=== PATIENT | male | born 1975 | race Native Hawaiian/Other Pacific Islander ===

== ENCOUNTER 2017-10-30 22:45 | Emergency (ER) | payer MEDICAID ==
[2017-10-30 23:07] VITALS: O2SAT 100
[2017-10-30 23:16] LABS: BASO # 0.1 K/uL (0.0-0.2); EOS # 0.4 K/uL (0.0-0.7); EOS % 4.1 % (0.0-4.0); HEMOGLOBIN 11.1 g/dL (12.0-18.0); LYMPH # 1.2 K/uL (1.0-4.3); LYMPH % 11.4 % (20.0-40.0); MEAN CELL VOLUME 86.8 fL (80.0-94.0); MEAN CORPUSCULAR HEMOGLOBIN 29.6 pg (27.0-31.0); MEAN CORPUSCULAR HGB CONC 34.1 g/dL (33.0-37.0); MEAN PLATELET VOLUME 7.6 fL (7.2-11.7); MONO % 8.8 % (0.0-10.0); NEUT # 8.1 K/uL (1.8-7.0); NEUT % 74.7 % (50.0-75.0); RBC 3.74 Mil/uL (4.40-5.90); RED CELL DISTRIBUTION WIDTH 13.5 % (11.5-14.5); WHITE BLOOD COUNT 10.8 K/uL (4.8-10.8)
[2017-10-30] MEDS ORDERED: Sodium Chloride 0.9% 1,000 ML IV ONE (23:23)
[2017-10-30 23:26] LABS: ALB/GLOB RATIO 1.1 (1.0-2.1); ALBUMIN 3.6 g/dL (3.5-5.0); ALT/SGPT 27 U/L (21-72); AST/SGOT 17 U/L (17-59); BLOOD UREA NITROGEN 26 mg/dL (9-20); CALCIUM 9.1 mg/dl (8.6-10.4); GFR AFRICAN-AMERICAN > 60; GFR NON-AFRICAN AMERICAN > 60
--- NOTE | 2017-10-31 00:37 | C.PDOC ---
History Of Present Illness Patient brought by family for hypoglycemia. Patient has been diabetic for many years. 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 Denies any other physical complaints. 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 Time Seen by Provider: 10/30/17 23:17 Chief Complaint (Nursing): Altered Mental Status History Per: Patient History/Exam Limitations: None Onset/Duration Of Symptoms: Hrs Current Symptoms Are (Timing): Still Present Usual Baseline: Unknown Exacerbating Factor(s): Diabetic Use Of Anticoag/Antiplatelets: No Speech Is: Normal Recent travel outside of the [place]: No Associated Symptoms: denies: Fever, Chills, Headache, Vomiting, Diarrhea, Syncope, Weakness Past Medical History Reviewed: Historical Data, Nursing Documentation, Vital Signs Vital Signs: Last Vital Signs Temp Pulse 88 10/30/17 22:52 Resp 13 10/30/17 22:52 BP 105/70 10/30/17 22:52 Pulse Ox 100 10/31/17 00:38 - Medical History PMH: HTN Surgical History: No Surg Hx Family History: States: No Known Family Hx - Social History Hx Alcohol Use: Yes Hx Substance Use: No - Immunization History Hx Tetanus Toxoid Vaccination: No Hx Influenza Vaccination: No Hx Pneumococcal Vaccination: No Review Of Systems Constitutional: Negative for: Fever, Chills Cardiovascular: Negative for: Chest Pain Respiratory: Negative for: Cough, Shortness of Breath Gastrointestinal: Negative for: Nausea, Vomiting, Abdominal Pain, Diarrhea Skin: Negative for: Rash Neurological: Negative for: Weakness, Numbness, Change in Speech, Confusion, Dizziness Psych: Negative for: Suicidal ideation Physical Exam - Physical Exam Appears: Non-toxic, Other (Thin; chronically ill; ) Skin: Warm, Dry, Pale Head: Atraumatic, Normacephalic Eye(s): right: Normal Inspection, PERRL, EOMI, left: Other (Conjunctival suffusion; light sensitivity to eye. ) Oral Mucosa: Moist Neck: Supple Chest: Symmetrical, No Tenderness Cardiovascular: Rhythm Regular Respiratory: No Decreased Breath Sounds, No Rales, No Rhonchi, No Wheezing Gastrointestinal/Abdominal: Soft, No Tenderness, No Distention Extremity: Normal ROM, No Tenderness, No Pedal Edema, No Deformity Extremity: Bilateral: Normal Color And Temperature, Normal ROM Neurological/Psych: Oriented x3 (awake and alert), Normal Speech (speaking in full sentences), Normal Cognition, Other (no focal deficits) Gait: Steady ED Course And Treatment - Laboratory Results Result Diagrams: 10/30/17 23:11 10/30/17 23:11 O2 Sat by Pulse Oximetry: 100 (RA) Pulse Ox Interpretation: Normal Progress Note: fed dinner, feels much better, blood sugar improved and stable. 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 Patient's blood sugar was in the 60s. He was given juice but no food. - Patient refused EMS transport so her came with family. - At arrival patient's blood sugar was 84. Ordered blood work and urinalysis. Administered IV fluid. Disposition Doctor Will See Patient In The: Office Counseled Patient/Family Regarding: Studies Performed, Diagnosis - Disposition [facility] Disposition: HOME/ ROUTINE Disposition Time: 00:37 Condition: GOOD Additional Instructions: follow-up with [facility] to consider medication adjustment/changes for the diarrhea caused by Cellcept BRAT diet Continue to permit glucose to be a little elevated (150-200) by eating enough calories/carbohydrates Check finger stick again tonight Instructions: Diarrhea in Adolescents and Adults, Low Blood Sugar in People With Diabetes Forms: [facility] (Slovak) - Clinical Impression Clinical Impression: Hypoglycemia, Diarrhea - Scribe Statement The provider has reviewed the documentation as recorded by the Marlaibozzy Gardiner All medical record entries made by the Marlaibozzy were at my direction and personally dictated by me. I have reviewed the chart and agree that the record accurately reflects my personal performance of the history, physical exam, medical decision making, and the department course for this patient. I have also personally directed, reviewed, and agree with the discharge instructions and disposition.
[2017-10-31 01:20] VITALS: BP 97/65; PULSE 97; RESP 18; TEMP 98.7
== END 2017-10-31 01:20 | disposition home or self-care (01) ==
LOC: C.ER 22:45
DX: E11.649 Type 2 diabetes mellitus with hypoglycemia without coma (principal); R19.7 Diarrhea, unspecified
CPT/HCPCS: 80053; 82009; 82948; 85025; 96360; 99285; J7040

== ENCOUNTER 2018-09-19 15:57 | Emergency (ER) | payer MEDICAID, OTHER ==
[2018-09-19 16:06] VITALS: BP 116/74; PULSE 90; TEMP 97.8; O2SAT 95
[2018-09-19] MEDS ORDERED: Naproxen 550 mg Tab PO STA (16:57)
[2018-09-19] MEDS ORDERED: Naproxen 550 mg Tab PO ONE (17:07)
--- NOTE | 2018-09-19 18:00 | C.PDOC ---
History Of Present Illness 43 year old male presents to the emergency department with complaints of right shoulder pain which began 3 days ago but worsened today. Patient states that he does 200 pushups per day, and last week he felt pain and stopped for 3-4 days. Patient resumed the pushups, but this time was doing 100 and noticed the pain in his right shoulder once again. Patient reports taking OTC pain medications without relief. Patient is currently wearing a sling to immobilize the arm and rates his pain as 8/10. Patient denies paresthesia, weakness, stiffness, swelling, and bruising. Time Seen by Provider: 09/19/18 16:47 Chief Complaint (Nursing): Upper Extremity Problem/Injury History Per: Patient History/Exam Limitations: no limitations Onset/Duration Of Symptoms: Days (3) Current Symptoms Are (Timing): Still Present Quality: "Pain" Pain Scale Rating Of: 8 Exacerbating Factor(s): Strenuous Use Of Affected Area, Movement Past Medical History Reviewed: Historical Data, Nursing Documentation, Vital Signs Vital Signs: Last Vital Signs Temp 97.8 F 09/19/18 16:01 Pulse 90 09/19/18 16:01 Resp 17 09/19/18 16:01 BP 116/74 09/19/18 16:01 Pulse Ox 95 09/19/18 16:01 - Medical History PMH: HTN (not medicated) Denies: Chronic Kidney Disease Surgical History: No Surg Hx Family History: States: No Known Family Hx - Social History Hx Alcohol Use: No Hx Substance Use: No - Immunization History Hx Tetanus Toxoid Vaccination: Yes Hx Influenza Vaccination: Yes Hx Pneumococcal Vaccination: Yes Review Of Systems Constitutional: Negative for: Fever, Chills Musculoskeletal: Positive for: Shoulder Pain (right) Physical Exam - Physical Exam Appears: Non-toxic, No Acute Distress Skin: Normal Color, Warm, Dry Head: Atraumatic, Normacephalic Eye(s): bilateral: Normal Inspection, PERRL, EOMI Neck: Normal, Supple Chest: Symmetrical, No Tenderness Extremity: No Normal ROM (only able to abduct the right arm 150 degrees, pain with ROM), No Other (dislocation at right shoulder joint, evidence of ecchymosis) Neurological/Psych: Oriented x3, Normal Speech, Normal Cognition ED Course And Treatment O2 Sat by Pulse Oximetry: 95 (RA) Pulse Ox Interpretation: Normal Medical Decision Making Medical Decision Making: Plan: Naproxen 550mg PO Patient verbalizes understanding and is in agreement with plan. Patient is stable for discharge. Patient instructed to f/u with Orthopedics. Disposition - Disposition Referrals: Gerry Hough MD [Medical Doctor] - Geo Almanzar III, MD [Staff Provider] - Disposition: HOME/ ROUTINE Disposition Time: 17:58 Condition: STABLE Additional Instructions: Follow up with Ortho in 1-2 days for possible MRI Start Naproxen twice a day and Flexeril three times a day as need for muscle spasm Return to ED if symptoms worsen Prescriptions: Cyclobenzaprine [Flexeril] 5 mg PO TID PRN #30 tab PRN Reason: Muscle Spasm Naproxen [Naprosyn] 500 mg PO BID #30 tablet Instructions: Muscle Strain (DC), Shoulder Instability (DC) Forms: [employer] (Burkinan) - Clinical Impression Clinical Impression: Shoulder strain - PA / HABILITATIVE INTERVENTIONIST / Resident Statement MD/DO has reviewed & agrees with the documentation as recorded. - Scribe Statement The provider has reviewed the documentation as recorded by the Scribe (Shubham Caraballo) All medical record entries made by the Scribe were at my direction and personally dictated by me. I have reviewed the chart and agree that the record accurately reflects my personal performance of the history, physical exam, medical decision making, and the department course for this patient. I have also personally directed, reviewed, and agree with the discharge instructions and disposition.
[2018-09-19 18:15] VITALS: RESP 18
== END 2018-09-19 18:14 | disposition home or self-care (01) ==
LOC: C.ER 15:57
DX: S46.911A Strain of unspecified muscle, fascia and tendon at shoulder and upper arm level, right arm, initial encounter (principal); X58.XXXA Exposure to other specified factors, initial encounter; Y93.B2 Activity, push-ups, pull-ups, sit-ups